=== PATIENT | male | born 1990 | race Caucasian/White ===

== ENCOUNTER 2020-06-19 00:03 | Emergency (ER) | payer SELFPAY ==
[~2020-06-19] VITALS: Ht 188 cm; Wt 90.7 kg
[2020-06-19 00:05] VITALS: BP 137/90
--- NOTE | 2020-06-19 00:05 | NUR ---
ED Nurse Note: Pt placed in Tx1. Pt RADHA GAGNON [address] per EMS report [employer] called [facility] on pt. Upon arrival pt is c/o using bath salts that thought it was meth. Pt states "I need my zyprexa shot and ativan shot." Pt is AAOx4, breathing even and unlabored. Behavior is bizarre, pt is cooperative and follows directions.
--- NOTE | 2020-06-19 00:23 | Emergency Room Report ---
History of Present Illness General Chief Complaint: General Complaint Source: Patient, EMS Present Illness HPI This is a 29-year-old male with a psychiatric history. He also has history of substance abuse. He presents with chief complaint of insomnia and wanting an Ativan and Zyprexa shot. He asked that he get Zyprexa and 4 mg Ativan IM. He said this been an ongoing problem. He denies any fever chills but denies any suicidal thoughts homicidal thought. He just left [facility] earlier today. Patient also complained of constipation said he has not had a bowel movement for 3 days. Allergies: Coded Allergies: No Known Allergies (Unverified , 06/19/20) COVID-19 Screening Contact w/high risk pt: No Experienced COVID-19 symptoms?: No COVID-19 Testing performed SPINE SURGEON: No Patient History Past Medical History: see triage record, old chart reviewed Past Surgical History: none Pertinent Family History: none Social History: Reports: smoking, drug use Immunizations: other Reviewed Nursing Documentation: PMH: Agreed; PSxH: Agreed Review of Systems Eye: Denies: eye pain, blurred vision ENT: Denies: ear pain, nose congestion, throat swelling Respiratory: Denies: cough, shortness of breath Cardiovascular: Denies: chest pain, palpitations Gastrointestinal: Denies: abdominal pain, diarrhea, nausea, vomiting Musculoskeletal: Denies: back pain, joint pain Skin: Denies: rash Neurological: Denies: headache, numbness Endocrine: Denies: increased thirst, increased urine Hematologic/Lymphatic: Denies: easy bruising All Other Systems: negative except mentioned in HPI Physical Exam Vital Signs Date Time Temp Pulse Resp B/P (MAP) Pulse Ox O2 Delivery O2 Flow Rate FiO2 06/19/20 00:03 98.1 93 18 137/90 (106) 96 Room Air Vitals unremarkable Sp02 EP Interpretation: reviewed, normal General Appearance: well appearing, no apparent distress, alert Head: normocephalic, atraumatic Eyes: bilateral eye PERRL, bilateral eye EOMI ENT: hearing grossly normal, normal pharynx Neck: full range of motion, supple, no meningismus Respiratory: chest non-tender, lungs clear, normal breath sounds Cardiovascular #1: regular rate, rhythm, no murmur Gastrointestinal: normal bowel sounds, non tender, no mass, no organomegaly, no bruit, non-distended Musculoskeletal: back normal, normal range of motion, gait/station normal Psychiatric: other - Very jittery, agitated Medical Decision Making Homeless Attestation I, The treating physician, Dr Tien Carlos, has assessed and agrees that patient is medically stable for discharge to an outpatient disposition. Diagnostic Impression: Primary Impression: Polysubstance abuse Additional Impression: Acute psychosis ER Course Patient presents with agitation and acute psychosis secondary to his polysubstance abuse. I am not comfortable giving him 4 mg of Ativan. I gave him a dose of his Zyprexa here. He said he is constipated the first he did here was went to bathroom and had no large bowel movement. He denies suicidal thoughts homicidal thought. There is no criteria for 5150. Patient said he does not want to go to rehab. This patient is a chronic risk of self injury due to poor impulse control, limited coping skills, and judgment intermittently impaired by intoxication. I believe that the available clinical evidence to suggest that these characteristics derived primarily from personality disorder and are likely very stable over time. Hospitalization would likely attenuate risk of self-harm only during correction period, without lasting risk reduction. Serious self-harm, while possible, would likely be inadvertent, and because of impulsivity, and foreseeable. For these reasons, I do not believe hospitalization would provide meaningful reduction in risk of self-harm. Last Vital Signs Date Time Temp Pulse Resp B/P (MAP) Pulse Ox O2 Delivery O2 Flow Rate FiO2 06/19/20 00:03 98.1 93 18 137/90 (106) 96 Room Air Status: improved Disposition: HOME, SELF-CARE Condition: Stable Additional Instructions: Stop using drugs. Follow-up with your doctor in 7 days. Return if symptoms worsen. Tien Carlos MD Jun 19, 2020 00:23
[2020-06-19 00:30] VITALS: BP 135/87
--- NOTE | 2020-06-19 00:30 | NUR ---
ER DISCHARGE NOTE: Patient is cleared to be discharged per ERMD, pt is aox4, on room air, with stable vital signs. pt was given dc paperwork, with instructions to f/u with rehab facilities. Food/water, clothes, and resource booklet provided and accepted. pt was able to verbalize understanding, pt id band removed. pt is able to ambulate with steady gait. pt took all belongings.
[2020-06-19] MEDS ORDERED: NICODERM CQ1 EAC1 TD (10:19)
== END 2020-06-19 00:30 | disposition home or self-care (01) ==
LOC: EDBD 00:03 → EMR 00:28
DX: F19.10 Other psychoactive substance abuse, uncomplicated (principal); F23 Brief psychotic disorder; F17.200 Nicotine dependence, unspecified, uncomplicated
CPT/HCPCS: 99282

== ENCOUNTER 2020-06-19 10:07 | Emergency (ER) | payer OTHER ==
[~2020-06-19] VITALS: Ht 185.4 cm; Wt 81.6 kg
[2020-06-19 10:17] VITALS: BP 125/75
--- NOTE | 2020-06-19 10:18 | NUR ---
ED Nurse Note: pt was here last night. he's back wanting rx for ativan, zyprexa and nicotine patches.
[2020-06-19] MEDS ORDERED: NICODERM CQ1 EAC1 TD (10:19)
--- NOTE | 2020-06-19 10:24 | Emergency Room Report ---
History of Present Illness General Chief Complaint: Medication Refill Source: Patient Present Illness HPI Patient is a 29-year-old male presents to the ER requesting medication refills. Patient states that he needs a refill on his Ativan and Zyprexa. He is also requesting nicotine patches. He states that he smokes "a lot a lot a lot" daily and would like to quit. He denies any fever or chills. He denies any other acute complaints. Allergies: Coded Allergies: No Known Allergies (Unverified , 06/19/20) COVID-19 Screening Contact w/high risk pt: No Experienced COVID-19 symptoms?: No COVID-19 Testing performed GIS CONSULTANT: No Patient History Reviewed Nursing Documentation: PMH: Agreed; PSxH: Agreed Nursing Documentation-PMH Past Medical History: No History, Except For History Of Psychiatric Problem: Yes - anxiety depression Review of Systems All Other Systems: negative except mentioned in HPI Physical Exam Vital Signs Date Time Temp Pulse Resp B/P (MAP) Pulse Ox O2 Delivery O2 Flow Rate FiO2 06/19/20 10:10 98.1 92 16 125/75 (92) 99 Room Air Sp02 EP Interpretation: reviewed, normal General Appearance: no apparent distress, alert, GCS 15, non-toxic, other - Disheveled Head: normocephalic, atraumatic Eyes: bilateral eye normal inspection, bilateral eye PERRL ENT: hearing grossly normal, normal pharynx, no angioedema, normal voice Neck: full range of motion, supple/symm/no masses Respiratory: no accessory muscle use, speaking full sentences Cardiovascular #1: regular rate, rhythm, no edema Gastrointestinal: non tender, soft Rectal: deferred Musculoskeletal: normal range of motion Neurologic: health services director III-XII nml as tested Psychiatric: no suicidal/homicidal ideation, anxious Skin: no rash Lymphatic: no adenopathy Medical Decision Making Diagnostic Impression: Primary Impression: Encounter for medication refill ER Course I explained to the patient that we are unable to refill psychiatric medications after Zyprexa and Ativan in the emergency department. He demonstrated understanding. I have given him a nicotine patch here and started him on a prescription for nicotine. I have given him outpatient resources. After discussing risks and benefits of further diagnostics, treatment plans, as well as indications for and risks of admission, the patient is agreeable to being di scharged home. I have explained that their evaluation and treatment in the emergency department today is an important step towards them achieving better health but that their evaluation today is not intended to replace further evaluation and treatment by a physician in their local clinic. I have explained that while the current findings suggest no immediate life threatening emergency they will require further evaluation and treatment by a physician of their choice in their area. They understand that it will be necessary for them to review the final reports of their ED visit with their clinic physician. We have reviewed indications for return to the Emergency Department. I have explained that additional time may need to pass and/or additional testing as an outpatient may be necessary before a definitive diagnosis can be made. They tell me they are willing to follow up as instructed within the timeframe I recommend. They appear to understand what we discussed. Additionally they understand that if they are unable to be seen by an outpatient physician they are welcome, and in fact should, return to the Emergency Department for a repeat evaluation. The patient is stable at time of discharge. Last Vital Signs Date Time Temp Pulse Resp B/P (MAP) Pulse Ox O2 Delivery O2 Flow Rate FiO2 06/19/20 10:17 98.1 16 125/75 99 Room Air 06/19/20 10:10 92 Disposition: HOME, SELF-CARE Condition: Stable Scripts Nicotine 14MG Patch* (NICODERM CQ 14MG*) 1 Each Patch.td24 1 EACH TD DAILY for 7 Days, EA Prov: Deana Moseley M.D. 06/19/[address]errals: [facility] Patient Instructions: Medicine Refill at the Emergency Department Additional Instructions: The patient was provided with discharge instructions, notified to follow-up with a primary care doctor and or specialist in the next 24-48 hours, and to return to the ED if they have worsening of their symptoms. Please note that this report is being documented using Identiv technology. This can lead to erroneous entry secondary to incorrect interpretation by the dictating instrument. Deana Moseley M.D. Jun 19, 2020 10:24
--- NOTE | 2020-06-19 10:31 | NUR ---
ER DISCHARGE NOTE: Patient is cleared to be discharged per ERMD, pt is aox4, on room air, with stable vital signs. pt was given dc and prescription instructions, pt was able to verbalize understanding. pt is able to ambulate with steady gait. pt took all belongings.
== END 2020-06-19 10:25 | disposition home or self-care (01) ==
LOC: EMR 10:20
DX: Z76.0 Encounter for issue of repeat prescription (principal); F17.200 Nicotine dependence, unspecified, uncomplicated; F41.9 Anxiety disorder, unspecified
CPT/HCPCS: 99282

== ENCOUNTER 2020-06-19 18:38 | Emergency (ER) | payer OTHER ==
[~2020-06-19] VITALS: Ht 182.9 cm; Wt 72.6 kg
[~2020-06-19 18:38] MED LIST: NICODERM CQ1 EAC1 TD
--- NOTE | 2020-06-19 18:49 | NUR ---
ED Nurse Note:pt is here for the 3rd time today. he states he wants an ativan and zyprexa shot and transportation
[2020-06-19 18:50] VITALS: BP 134/80
--- NOTE | 2020-06-19 19:12 | Emergency Room Report ---
History of Present Illness General Chief Complaint: Behavioral Complaint Source: Patient Present Illness HPI Patient presents requesting a shot of Ativan. He states that he has overwhelming anxiety. He states that someone is trying to kill him at this time. He denies suicidal or homicidal ideation. He denies drug usage (however review of old records suggest that this is not true). 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 Patient denies exposure to Covid positive contacts. No fevers, chills, sore throat, chest pain, palpitations, nausea, vomiting, diarrhea, dysuria, abdominal pain, shortness of breath, joint pain, rashes, depression, visual changes, dizziness, headache. Allergies: Coded Allergies: No Known Allergies (Unverified , 06/19/20) COVID-19 Screening Contact w/high risk pt: No Experienced COVID-19 symptoms?: No COVID-19 Testing performed ENTRY LEVEL MARKETING ASSISTANT: No Patient History Past Medical History: see triage record, old chart reviewed Social History: Reports: smoking, drug use Social History Narrative Living in [facility] Reviewed Nursing Documentation: PMH: Agreed; PSxH: Agreed Nursing Documentation-PMH Past Medical History: No History, Except For History Of Psychiatric Problem: Yes - bipolar, schizophrenia Review of Systems All Other Systems: negative except mentioned in HPI Physical Exam Vital Signs Date Time Temp Pulse Resp B/P (MAP) Pulse Ox O2 Delivery O2 Flow Rate FiO2 06/19/20 18:43 98.1 92 17 134/80 (98) 99 Room Air Sp02 EP Interpretation: reviewed, normal General Appearance: well appearing, GCS 15, other - Pressure Head: normocephalic Eyes: bilateral eye normal inspection, bilateral eye PERRL, bilateral eye Scleral Injection ENT: moist mucus membranes Respiratory: normal inspection Cardiovascular #1: regular rate, rhythm Cardiovascular #2: 2+ radial (R) Gastrointestinal: normal inspection Musculoskeletal: gait/station normal Neurologic: alert, grossly normal Psychiatric: no suicidal/homicidal ideation, anxious, other - Pressured speech, mildly delusional and self retraining Skin: normal color, warm/dry, other - Fully dressed Medical Decision Making Homeless Attestation I, The treating physician Dr. Hernandez, have assessed and agree that patient is medically stable for discharge to an outpatient disposition. Diagnostic Impression: Primary Impression: Polysubstance abuse Additional Impression: Schizoaffective disorder, bipolar type ER Course Patient presents requesting a shot of Ativan. Differential includes anxiety, drug use, exacerbation of bipolar schizoaffective disorder amongst others. Patient's request changes. When told he is not going to receive a shot of Ativan he requests Zyprexa. Review of the records reveal that really in the morning he received 1 dose of Zyprexa however could be due for a second 1. Based on history physical no labs are indicated at this time. He denies suicidal or homicidal ideation. Patient given a dose of Zyprexa in the emergency department. No medical emergency at this time. No psychiatric emergency at this time. The patient is very purposeful. Patient stable for outpatient observation and treatment. Last Vital Signs Date Time Temp Pulse Resp B/P (MAP) Pulse Ox O2 Delivery O2 Flow Rate FiO2 06/19/20 19:26 98.1 94 15 141/82 97 Room Air Status: improved Disposition: OTH-HOMELESS - staying at [facility] Condition: Stable Royal Hernandez MD Jun 19, 2020 19:12
--- NOTE | 2020-06-19 19:25 | NUR ---
ED Nurse Note: Pt cleared by health care Provider for discharge. D/C instructions/prescription was given and explained to pt, and pt verbalized understanding of teachings. All medical devices such as ID band removed. Pt is AAO x4, ambulatory and left with all personal belongings.
[2020-06-19 19:26] VITALS: BP 141/82
== END 2020-06-19 19:29 | disposition other institution (70) ==
LOC: EMR 19:20
DX: F19.10 Other psychoactive substance abuse, uncomplicated (principal); F25.0 Schizoaffective disorder, bipolar type; Z59.0 Homelessness
CPT/HCPCS: 99282